=== PATIENT | female | born 1955 | race Caucasian/White ===

== ENCOUNTER 2016-05-22 21:20 | Emergency (ER) | payer OTHER ==
[~2016-05-22 21:20] MED LIST: AMARYL2 PO; AMARYL4 PO; ASAB PO; COREG6 PO; ENDOCET1 TA3 PO; FLAGIV500 IV; GLUCPH PO; GLUMETZA1000 MG PO; GLUMETZA500 MG PO; HYDROCHLOROT25 MG PO; IRON325 MG PO; LIPITOR40 PO; MAX25 PO; MIRAPEX250 PO; NORV25 PO; PLAVIX PO; PR25 PO; PRIN10 PO; PRIN5 PO; PROBIOTIC OR; PROTONIX PO; ZOCOR40 PO; ZOCOR80 MG PO; ZOL100 PO; ZOL50 PO
[2016-05-22 22:21] LABS: BASOPHILS 0.2 %; BASOPHILS ABSOLUTE 0.02 10/3/uL (0.0-0.16); EOSINOPHILS 1.3 %; EOSINOPHILS ABSOLUTE 0.12 10/3/uL (0.0-0.53); HEMATOCRIT 38.3 % (36.0-48.0); HEMOGLOBIN 12.7 g/dL (12.0-16.0); IMMATURE GRANULOCYTES 0.3 %; IMMATURE GRANULOCYTES ABSOLUTE 0.03 10/3/uL (0.0-0.11); LYMPHOCYTES 24.5 %; LYMPHOCYTES ABSOLUTE 2.18 10/3/uL (0.67-4.30); MANUAL DIFF NO %; MEAN CORPUS HGB CONC 33.2 g/dL (32.0-36.0); MEAN CORPUSCULAR HEMOGLOB 28.5 pg (26.0-34.0); MEAN CORPUSCULAR VOLUME 85.9 fL (80-100); MEAN PLATELET VOLUME 9.5 fL (9.2-13.0); MONOCYTES 3.5 %; MONOCYTES ABSOLUTE 0.31 10/3/uL (0.21-1.20); NEUTROPHILS 70.2 %; NEUTROPHILS ABSOLUTE 6.25 10/3/uL (2.02-8.40); PLATELET COUNT 227 10/3/uL (150-400); RBC DISTRIBUTION WIDTH 13.8 % (12.0-16.0); RED CELL COUNT 4.46 10/6/uL (4.0-5.6); WHITE BLOOD CELLS 8.9 10/3/uL (4.5-10.5)
[2016-05-22 22:22] LABS: ASCORBIC ACID (UR NOT ORDER) NEG (NEG); BILIRUBIN, URINE NEGATIVE (NEG); ER URINALYSIS TAT 0 Hrs 10 Mins; KETONE, URINE NEGATIVE (NEG); LEUKOCYTE ESTERASE(NOT OR NEG (NEG); NITRITE (URINE) NEG (NEG); WBC (NOT ORDERED) (RFLEX) < 1 (0-5)
[2016-05-22 22:39] LABS: ALBUMIN 3.5 G/DL (3.5-5.0); ALKALINE PHOSPHATASE 117 U/L (45-117); BUN (BLOOD UREA NITROGEN) 7 MG/DL (6-23); CALCIUM, SERUM 8.7 MG/DL (8.5-10.4); CHLORIDE, SERUM 106 MMOL/L (96-112); CO2 (CARBON DIOXIDE) 29 MMOL/L (24-34); CREATININE 0.85 MG/DL (0.55-1.02); GFR AFRICAN AMERICAN 85 ML/MIN (>=60); GFR NON AFRICAN AMERICAN 73 ML/MIN (>=60); GLOBULIN 3.4 G/DL (2.5-4.1); GLUCOSE, SERUM 128 MG/DL (60-99); POTASSIUM, SERUM 3.4 MMOL/L (3.5-5.3); SGOT(AST) 12 U/L (5-40); SGPT(ALT) 20 U/L (5-65); TOTAL PROTEIN 6.9 G/DL (6.0-8.5)
[2016-05-22 22:40] LABS: SODIUM, SERUM 143 MMOL/L (135-148); TOTAL BILIRUBIN 1.2 MG/DL (0-1.2)
[2016-07-27] MEDS ORDERED: GLUCOPHAGE1000 MG PO (15:28)
[2016-07-27] MEDS ORDERED: ZANTAC300 MG PO (15:30)
[2016-07-27] MEDS ORDERED: AMARYL2 PO (15:30)
[2016-07-27] MEDS ORDERED: BENTYL10 PO (15:31)
[2016-07-27] MEDS ORDERED: NEUR100 PO (15:32)
[2016-07-27] MEDS ORDERED: DIL2TAB PO (15:33)
[2016-09-12] MEDS ORDERED: NORCO1 TAB PO (22:23)
[2016-09-12] MEDS ORDERED: P10 PO (22:24)
[2016-09-12] MEDS ORDERED: FLEX PO (22:25)
[2016-09-12] MEDS ORDERED: ULTRAM50 PO (22:25)
[2016-09-12] MEDS ORDERED: NEUR100 PO (22:26)
[2016-09-12] MEDS ORDERED: DEX4 PO (22:26)
[2016-09-12] MEDS ORDERED: CHEMOTHERAPY IV (22:27)
[2016-09-12] MEDS ORDERED: CLARIT10 PO (22:27)
[2016-09-12] MEDS ORDERED: BENTYL10 PO (22:28)
[2016-09-12] MEDS ORDERED: PR25 PO (22:28)
[2016-09-12] MEDS ORDERED: ZANTAC300 MG PO (22:28)
[2016-09-12] MEDS ORDERED: METHOC750B PO (22:28)
[2016-09-12] MEDS ORDERED: MAXZIDE PO (22:30)
[2016-09-12] MEDS ORDERED: GLUCOPHAGE1000 MG PO (22:30)
[2016-09-12] MEDS ORDERED: AMARYL2 PO (22:30)
[2016-09-12] MEDS ORDERED: PROTONIX PO (22:30)
[2016-09-14] MEDS ORDERED: VANCOMYCIN PO/LIQ (11:11)
[2016-09-14] MEDS ORDERED: HABIT21 TOP (11:13)
[2016-09-14] MEDS ORDERED: HABIT14 TOP (11:14)
[2016-09-14] MEDS ORDERED: VANCOCIN HCL125 MG PO (11:15)
== END 2016-05-22 23:49 | disposition home or self-care (01) ==
LOC: ER 21:20
PROVIDERS: Emergency Medicine
DX: K29.50 Unspecified chronic gastritis without bleeding (principal); F17.200 Nicotine dependence, unspecified, uncomplicated; Z85.038 Personal history of other malignant neoplasm of large intestine; Z88.5 Allergy status to narcotic agent; Z79.82 Long term (current) use of aspirin; Z79.899 Other long term (current) drug therapy
CPT/HCPCS: 74022; 80053; 81001; 83690; 85025; 99284; A9270-GY

== ENCOUNTER 2016-06-05 17:04 | Inpatient (IN) | payer OTHER ==
--- NOTE | ~2016-06-05 | DS ---
Discharge Summary [facility] [address] [place]. [address] NAME: LASHONDA LESTER : 53 STATUS : DIS IN PAT#: [id number] AGE: 61 ADM/REG DATE : 06/05/16 MR#: [id number] REPORT SERV DATE: 06/10/16 DICTATED BY: KINGA EATNO DATE: 06/09/16 REPORT STATUS : Draft TRANSCRIBED BY: MODL DATE: 06/09/16 ADMISSION DATE: 06/05/2016 DISCHARGE DATE: 06/08/2016 CONDITION ON DISCHARGE: Stable. DISPOSITION: Discharged to home. ADVISE ON DISCHARGE: To follow up with PCP, Dr. Freed, within the next one week and advised to stop smoking and lifestyle changes. DIAGNOSES ON DISCHARGE: 1. Abdominal pain, especially upper abdominal pain which is worse when the patient eats food - no definitive cause for this has been identified as of yet except that the patient has chronic granular changes in her gastric mucosa and biopsy of this is pending at this time. The patient has undergone the following tests regarding this:. a. A CT scan of the abdomen and pelvis that did not show any acute changes but ileocolic anastomosis as will be dictated in the following paragraphs. b. The patient also had a mesenteric Doppler ultrasound that did not show any SMA or LETICIA stenosis. c. MRA or magnetic resonance angiography of the abdominal blood vessels including SMA and LETICIA that showed both superior mesenteric and inferior mesenteric arteries to be patent and a questionable blood clot in the superior mesenteric artery which was not significant at this time. It is probably related to atherosclerosis secondary to the patient's smoking and the patient has been advised to stop it. d. The patient also underwent a gastric emptying study that showed no evidence of gastroparesis. e. The patient also underwent a repeat upper endoscopy which showed the only positive finding being granular mucosa of the stomach which has been biopsied. The patient may have chronic gastritis and granular changes in the stomach mucosa; however, biopsy results are awaited at this time. The patient does not have any significant esophagitis or duodenitis or any duodenal ulcer at this time and definitely no bleeding. Other diagnoses that are chronic in this patient include the followin. Diabetes mellitus which is chronic and stable. 2. Hypertension and dyslipidemia which are chronic and stable. 3. Chronic kidney disease, stage 2, which is stable. 4. History of colon cancer, status post partial colon resection and ileocolic anastomosis which is stable. 5. Restless legs syndrome - the patient has been restarted on Mirapex. 6. Abnormal mammogram and abnormal breath sounds with a mass in the right breast, I understand for which the patient is being scheduled for a biopsy as an outpatient by Dr. Freed apparently. The patient is aware and Dr. Freed is aware of this too. 7. The patient may also have irritable bowel syndrome as she has diarrhea alternating with constipation. However, as the patient reported diarrhea predominantly at this time, her stool was sent off for C diff and stool has come back negative for C diff at this Discharge [address] [place]. [address] NAME: LASHONDA LESTER : 53 STATUS : DIS IN PAT#: [id number] AGE: 61 ADM/REG DATE : 06/05/16 MR#: [id number] REPORT SERV DATE: 06/10/16 DICTATED BY: KINGA EATON DATE: 06/09/16 REPORT STATUS : Draft TRANSCRIBED BY: ANDREA DATE: 06/09/16 time. BRIEF HOSPITAL COURSE: The patient is a 61-year-old female patient who smokes at least one to two packs a day, came in because of abdominal pain for the last several months off and on and also weight loss and diarrhea off and on. The patient's family states that she has been to several emergency rooms and they could not find anything wrong on CT scan and she has been turned back. At this time, they really want to find out what is going on. The patient actually was sent as a direct admit from Dr. Freed's office for this abdominal pain, subjective fever, and diarrhea. The patient also reported off and on nausea with some vomiting, but her main complaint was mainly decreased appetite, abdominal pain, mainly in the epigastric area that happens when she eats food and because of loss of appetite and this nausea and pain that happens when she eats food, loss of weight also in the last few weeks to months. The patient states that she will not discuss quitting smoking at this time, and hence throughout hospitalization, other than one or two times and upon discharge that I had discussed the risks of continuing to smoke with her. I could not bring up anything else. Essentially, she was admitted for pain control and started on IV fluids and supportive care. The patient's diarrhea is resolved and her C diff came back negative. Regarding her abdominal pain. Several workups that were done came back negative and all of this has been described as above. The patient requested a consult from GI specialist Dr. Taran Perry, and as he was not on-call, we went ahead and consulted Dr. Pisano. Dr. Pisano performed a repeat EGD on this patient and EGD essentially shows only granular changes in the gastric mucosa. Other than that, no bleeding at this time and no other significant changes on EGD that could account for her abdominal pain. All other tests as above have come back negative also, and hence, she is being discharged home in stable condition with the following medications: 1. She will continue her PPI twice a day and sucralfate 1 g twice a day. 2. She will continue promethazine or Phenergan p.r.n. for nausea. The patient will continue her other medications as follows: 1. Zoloft 50 mg once a day, Coreg 6.25 mg p.o. b.i.d. for hypertension which has been restarted while here in the hospital. 2. Flexeril 10 mg p.o. t.i.d. as this does give her some relief from pain. 3. Protonix 40 mg p.o. b.i.d. as mentioned. 4. Sucralfate 1 g p.o. b.i.d. as mentioned. 5. Mirapex 0.5 mg p.o. b.i.d. for restless legs. 6. Percocet 5/325 one p.o. t.i.d. p.r.n. for pain. The patient only has been given a few pills of this. 7. She will continue Zocor 40 mg p.o. at bedtime. The most recent labs I have on this patient upon discharge include the following: Blood cultures have come back with no growth at two days. CBC on 06/07/2016 shows a WBC count of 5.6, hemoglobin 11.5, hematocrit 34.7, and platelet count of 192. INR is 1.1. Electrolyte profile shows sodium of 140, potassium of 3.4 which was corrected, BUN 7, and creatinine 0.7. Upon repeat exam on 06/07/2016, her potassium came back at 3.7. Hence, the patient is being discharged home in stable condition and advised to follow up with her PCP within next one week and I have spent about 40 minutes in coordinating discharge care of this patient including [id number] encounter and summarizing this discharge. Discharge Summary [place] [id number] [facility] [place] [id number] NAME: LASHONDA LESTER : 53 STATUS : DIS IN PAT#: [id number] AGE: 61 ADM/REG DATE : 06/05/16 MR#: [id number] REPORT SERV DATE: 06/10/16 DICTATED BY: KINGA EATON DATE: 06/09/16 REPORT STATUS : Draft TRANSCRIBED BY: ANDREA DATE: 06/09/16 AIDE/ANDREA Kinga Eaton M.D. / [id number] CC: Fernando Brizuela M.D.
--- NOTE | ~2016-06-05 | HP ---
History And Physical [place] [id number] [facility] [place]. [address] NAME: LASHONDA MAZA : 53 STATUS : ADM IN PAT#: [id number] AGE: 61 ADM/REG DATE : 06/05/16 MR#: [id number] REPORT SERV DATE: 06/06/16 DICTATED BY: KINGA EATON DATE: 06/05/16 REPORT STATUS : Draft TRANSCRIBED BY: MODCordell DATE: 06/05/16 DATE OF ADMISSION: 06/05/2016 HISTORY OF PRESENT ILLNESS: Ms. Maza is a 61-year-old female patient, who is coming here as a direct admit from Dr. Freed's office. When I spoke to Dr. Freed, he mentioned to me that the reason for admission was essentially fever, abdominal pain with nausea and vomiting off and on and also diarrhea off and on for the last six to eight weeks. The patient came in as a direct admit. I examined the patient at the bedside, and the patient seems to be very anxious and shaky all over. However, I calmed her down and was able to get some history from her and some history from her and her son who is also at bedside. Essentially, this 61-year-old patient has been having upper quadrant abdominal pain almost every day for the last six to eight weeks. Along with this, she also has bouts of diarrhea at least two to three times a day, three to four times a week, and also nausea and vomiting off and on, also for the last six to eight weeks. The patient reports a 20- pound weight loss in the last six or eight weeks. Also, there has been some subjective fevers off and on for the last same period of six to eight weeks also. According to patient's family, they have visited several emergency rooms, the most recent one being at [facility] about a week ago and multiple CT scans of the abdomen in these hospitals have essentially showed nothing. The patient's family states that there is definitely something going on and the patient is not a pain seeker, and every time she goes on to the emergency room, they do these scans and workup and send her home saying that there is nothing acute going on, but the patient does experience the above problems as mentioned. REVIEW OF SYSTEMS: Negative for headaches, blurry vision, chest pain, shortness of breath, cough, dysuria, hematuria, blood in stool, etc., but positive for nausea and vomiting off and on, diarrhea off and on, 20 pounds weight loss, and definitely abdominal pain, which is making her not eat much at all for the last two months or so. PAST MEDICAL HISTORY: Significant for diabetes mellitus; hypertension; dyslipidemia; chronic kidney disease, stage II; a history of colon cancer, status post partial colon resection; restless legs syndrome; and chronic abdominal pain like this for the last two months or so. Also significant in past medical history, I was told that the patient recently had an abnormal mammogram and an abnormal breast ultrasound and the patient has been really anxious about this, but referral to Surgery has already been made for possible biopsy of this abnormal lesion in the breast. According to patient, this can wait, but she wants her abdominal pain sorted out first. HOME MEDICATIONS: Include the following: Amlodipine 2.5 mg once a day, Coreg 6.25 mg p.o. twice a day, cyclobenzaprine 10 mg one tablet p.o. t.i.d., Pepcid 20 mg one p.o. b.i.d., glimepiride 2 mg 1-1/2 tablets every day, lisinopril 10 mg once a day, Meloxicam 7.5 mg once a day with food, metformin 1000 mg tablet one p.o. b.i.d., Percocet 5/325 mg tablet p.r.n. for pain, Pantoprazole 40 mg tablet one p.o. daily, Mirapex 0.5 mg p.o. b.i.d., Phenergan p.r.n. for nausea and vomiting, sertraline 50 mg once a day, simvastatin 40 mg tablet once a day, sucralfate 1 g tablet one p.o. four times a day, Tizanidine 6 mg oral capsule every six to eight hours as needed, and Maxzide 75/50 once a day. History And Physical [address] [place]. [address] NAME: LASHONDA MAZA : 53 STATUS : ADM IN [facility]#: [id number] AGE: 61 ADM/REG DATE : 06/05/16 MR#: [id number] REPORT SERV DATE: 06/06/16 DICTATED BY: KINGA EATON DATE: 06/05/16 REPORT STATUS : Draft TRANSCRIBED BY: ANDREA DATE: 06/05/16 ALLERGIES: THE PATIENT IS ALLERGIC TO CODEINE. FAMILY HISTORY: Noncontributory to the current problem, but the patient does have a family history of COPD, family history of dementia, and a family history of alcohol abuse. SURGICAL HISTORY: The patient has had a history of appendectomy, history of , a history of partial colon resection for the colon cancer, a history of oophorectomy, and a history of angioplasty of the coronary arteries in the past. The patient has also had a total abdominal hysterectomy and cholecystectomy in the past. SOCIAL HISTORY: The patient smokes about two packs a day but denies any alcohol use, denies any illegal drug use. The patient is . Currently and son is with the patient. PHYSICAL EXAMINATION: GENERAL: On examination, the patient is alert and appears extremely anxious and shaky all over and she just states that she can calm down but she feels anxious. VITAL SIGNS: At this time are stable, and even in the doctor's office, her blood pressure was 117/70 and pulse was about 100-105 per minute. O2 saturations are normal. The patient does not appear febrile to touch. HEENT: There is no abnormality, there is no facial droop or facial weakness. NECK: There is no JVD or thyromegaly or lymphadenopathy. CARDIOVASCULAR SYSTEM: S1, S2 appreciated. Mild tachycardia noted but no murmurs, rubs, or gallops noted. RESPIRATORY SYSTEM: Clear lungs noted. No rales or rhonchi appreciated. ABDOMEN: Soft, mildly distended. There is some tenderness in the upper quadrants and also in the central part of the abdomen, but there is no guarding or rigidity noted. Bowel sounds are appreciated even though hypoactive. EXTREMITIES: There is no pedal edema. Pedal pulses are felt but diminished in both lower extremities. NEUROLOGICAL: No deficits at this time. PSYCHIATRIC: The patient appears extremely anxious. There is also history of depression for which patient takes sertraline. MUSCULOSKELETAL: No acute swelling or warmth or redness in any of the major joints. LABORATORY DATA: I do not have labs at this time but according to patient's PCP, Dr. Freed, a CBC done in the office showed a normal WBC but a left shift with neutrophilia. ASSESSMENT: Hence, my assessment at this time, is: 1. Probable sepsis as the patient does report subjective fevers, tachycardia, abdominal pain, nausea, vomiting, and diarrhea. Hence, for this, we will obtain a CBC, check blood culture and sensitivities, urine culture and sensitivities, UA, and check a chest x-ray also. We will also obtain lactic acid level and procalcitonin levels at this time too. We will not start antibiotics unless we have a source for this. 2. Abdominal pain with off and on nausea and vomiting. Hence, we will check a CMP, lipase, amylase, and we will also check a CT scan of the abdomen without contrast as History And Physical [address] [address] NAME: LASHONDA MAZA : 53 STATUS : ADM IN [facility]#: [id number] AGE: 61 ADM/REG DATE : 06/05/16 MR#: [id number] REPORT SERV DATE: 06/06/16 DICTATED BY: KINGA EATON DATE: 06/05/16 REPORT STATUS : Draft TRANSCRIBED BY: ANDREA DATE: 06/05/16 the patient has a history of chronic kidney disease. We will check a CT scan of the pelvis also. 3. Even though, the patient's family states that CT scans that have been done in the past have not showed anything acute, I would like to repeat another one at this time as one CT scan has not been done in the last few days and the patient is being admitted with acute abdominal pain this time. 4. For the diarrhea that the patient has had off and on along with the weight loss - we will check stool for C. diff. We will also start the patient on IV fluids for correction of mild dehydration with normal saline at 100 mL an hour and also add some multivitamins to this. 5. Regarding her home medications, I will be going ahead and restarting her only on the following home medications and holding off on the rest till I have some results of her labs and imaging studies. At the moment, I will start her on Coreg 6.25 mg p.o. b.i.d., Flexeril 10 mg p.o. t.i.d., Percocet 5/325 one p.o. t.i.d., Protonix 40 mg once a day, Mirapex 0.5 mg one p.o. b.i.d., sertraline 50 mg one p.o. q.a.m., simvastatin 40 mg once a day, and sucralfate 1 g p.o. b.i.d. We will try to give her Ativan 0.5 mg p.o. b.i.d. and definitely not allow her to smoke and coax her into not smoking at this time. If all the above studies are negative, we will definitely consider a mesenteric arterial Doppler to rule out SMA stenosis also in this patient. We will follow the patient and labs and radiological studies. RRA/MODL Kinga Eaton M.D. / [id number] CC: Fernando Brizuela M.D.
--- NOTE | ~2016-06-05 | CN ---
Consultation Report [facility] [address] [place]. [address] NAME: LASHONDA MAZA : 53 STATUS : ADM IN PAT#: [id number] AGE: 61 ADM/REG DATE : 06/05/16 MR#: [id number] REPORT SERV DATE: 06/06/16 DICTATED BY: MONET DIALLO DATE: 06/06/16 REPORT STATUS : Draft TRANSCRIBED BY: MODCordell DATE: 06/06/16 GI CONSULTATION. DATE OF CONSULTATION: 06/06/2016 REASON FOR CONSULTATION: Evaluation and management of epigastric abdominal pain and weight loss. HISTORY OF PRESENT ILLNESS: Ms. Maza is a 61-year-old female patient who has been seen by Dr. Perry in the past who was directly admitted from Dr. Freed's office on 06/05/2016 secondary to abdominal pain, nausea, vomiting, early satiety, diarrhea as well as intermittent fevers. She states that she has had trouble with her GI tract since the beginning of the year; however, over the last 7 weeks, she has had a 20 pound weight loss. She states that she has an appetite but that when she eats she fills up fast. She has epigastric abdominal pain, intermittent nausea with vomiting. Several days ago, she had diarrhea. She has had fevers on and off subjectively; however, when she was seen in her physician's office, there was note of elevated temperature. She also had a temperature max here of 100.3. The hospitalist has ordered a CT scan of the abdomen and pelvis. The patient states that she was at [facility] in early March for what she thought was a cardiac event; however, that was ruled out. She was seen by Dr. Andres Flores, GI there. She states she had an upper endoscopy but that she would like a second opinion as she is typically Dr. Perry's patient. He does not frequent [facility], and that is why she was seen by Dr. Flores there. She has seen Dr. Perry since being seen by Dr. Flores, and she was supposed to have a mesenteric ultrasound as an outpatient. However, secondary to the persistence of her symptoms, she came in for further evaluation. Her last EGD and colonoscopy with Dr. Taran Perry was in July 2014. Indication was iron deficiency anemia. EGD showed gastritis and normal esophagus. Colonoscopy showed poor prep, patent ileocolonic anastomosis, colon polyps, and nonbleeding internal hemorrhoids. I have discussed with the patient we will follow up on her CT scan as well as we will perform an EGD tomorrow. Risks, benefits, alternatives, and complications were detailed for her to include but not limited to risk of bleeding, perforation, infection, reaction to medications as well as cardiac and pulmonary side effects. Also, I am going to order a mesenteric ultrasound. PAST MEDICAL HISTORY: Positive for type 2 diabetes, hypertension, dyslipidemia, chronic kidney disease, colon cancer and status post resection, restless legs syndrome, abdominal pain, reflux, and recent abnormal breast mammogram and to see Surgery for potential biopsy. SOCIAL HISTORY: She is . She lives independently with her . She does smoke tobacco in the form of cigarettes. Denies any alcohol or illicit drugs. PAST SURGICAL HISTORY: Appendectomy, , partial colon resection, history of oophorectomy, angioplasty, total abdominal hysterectomy, and cholecystectomy. ALLERGIES: CODEINE. Consultation Report [address] [address] NAME: LASHONDA MAZA : 53 STATUS : ADM IN [facility]#: [id number] AGE: 61 ADM/REG DATE : 06/05/16 MR#: [id number] REPORT SERV DATE: 06/06/16 DICTATED BY: MONET DIALLO DATE: 06/06/16 REPORT STATUS : Draft TRANSCRIBED BY: ANDREA DATE: 06/06/16 MEDICATIONS: Phenergan and Zoloft. REVIEW OF SYSTEMS: A 10-point review of systems has been obtained with pertinent positives being addressed in the history of present illness. PHYSICAL EXAMINATION: VITAL SIGNS: Temperature is 98.9, pulse 106, respirations 16, and blood pressure 117/58. NEUROLOGIC: An alert, female resting in bed. No focal deficits. GENERAL: Cooperative. Mild distress secondary to abdominal discomfort. Awake, alert, oriented x3. HEENT: Anicteric. Pupils equal, round, reactive to light and accommodation. Normocephalic and atraumatic. NECK: No JVD. No palpable nodes. LUNGS: Diminished in the bases. Coarse in the upper lobes. Normal respiratory effort exhibited. CARDIOVASCULAR SYSTEM: Regular rate and rhythm. ABDOMEN: Soft and tender to palpation in the epigastric region with very mild rebound. No guarding. Active bowel sounds. EXTREMITIES: No edema. Normal distal pulses. SKIN: Warm, dry, and intact. PERTINENT LABORATORY DATA: Sodium 136, potassium 2.9, BUN is 5 creatinine 0.9. White count 7.4, hemoglobin 13.1, and hematocrit 39.7. Total bilirubin 0.8. Alkaline phosphatase 123, ALT 19, AST 16, lipase 102, and lactate 2.4. ASSESSMENT: 1. Abdominal pain. Ongoing since the beginning of the year. Epigastric in nature with increase in pain postprandially. 2. Nausea, vomiting, and diarrhea. 3. Fever. 4. Weight loss. PLAN: 1. Follow up CT. 2. Check a mesenteric ultrasound. 3. EGD in the morning with Dr. Pisano. I did discuss risks, benefits, alternatives, and complications with her to include, but not limited to risk of bleeding, perforation, infection, reaction to medications with cardiac or pulmonary side effects. She is agreeable to proceed. DG/MODL Consultation Report [address] [address] NAME: LASHONDA MAZA : 53 STATUS : ADM IN [facility]#: [id number] AGE: 61 ADM/REG DATE : 06/05/16 MR#: [id number] REPORT SERV DATE: 06/06/16 DICTATED BY: MONET DIALLO DATE: 06/06/16 REPORT STATUS : Draft TRANSCRIBED BY: ANDREA DATE: 06/06/16 KATIUSKA Osborn / [id number] CC: Fernando Brizuela M.D.
--- NOTE | ~2016-06-05 | EGD ---
EGD REPORT [facility] [address] [address] NAME: RACHEL LESTER : 53 STATUS : ADM IN PAT#: [id number] AGE: 61 ADM/REG DATE : 06/05/16 MR#: [id number] REPORT SERV DATE: 06/07/16 DICTATED BY: PRIMO BREAUX DATE: 06/07/16 REPORT STATUS : Draft TRANSCRIBED BY: [facility] DATE: 06/07/16 Endoscopy Center Patient Name: Rachel Lester Date of : 1955 Attending MD: PRIMO BREAUX MD Procedure Date No Time: 06/07/2016 Procedure: Upper GI endoscopy Indications: Epigastric abdominal pain, Nausea with vomiting, Weight loss Referring MD: BRANDY ASIF Medicines: Monitored Anesthesia Care Complications: No immediate complications. Estimated blood loss: Minimal. Procedure: Pre-Anesthesia Assessment: - ASA Grade Assessment: III - A patient with severe systemic disease. After obtaining informed consent, the endoscope was passed under direct vision. Throughout the procedure, the patient's blood pressure, pulse, and oxygen saturations were monitored continuously. The GIF [id number] was introduced through the mouth, and advanced to the second part of duodenum. The upper GI endoscopy was accomplished without difficulty. The patient tolerated the procedure well. Findings: The examined esophagus was normal. Diffuse granular mucosa was found in the gastric fundus and in the gastric body. Biopsies were taken with a cold forceps for histology. Estimated blood loss was minimal. The examined duodenum was normal. Biopsies were taken with a cold forceps for evaluation of celiac disease. Estimated blood loss was minimal. The cardia and gastric fundus were normal on retroflexion. The exam was otherwise without abnormality. Impression: - Granular gastric mucosa. Biopsied. - Normal examined duodenum. Biopsied. - The examination was otherwise normal. Recommendation: - Return patient to [facility] for ongoing care. - Await pathology results. Procedure Code(s): --- Professional --- 05983, Esophagogastroduodenoscopy, flexible, transoral; EGD REPORT [address] [address] NAME: RACHEL LESTER : [birth year] STATUS : ADM IN [facility]#: [id number] AGE: 61 ADM/REG DATE : 06/05/16 MR#: [id number] REPORT SERV DATE: 06/07/16 DICTATED BY: PRIMO BREAUX DATE: 06/07/16 REPORT STATUS : Draft TRANSCRIBED BY: [facility] DATE: 06/07/16 with biopsy, single or multiple Diagnosis Code(s): --- Professional --- K31.9, Disease of stomach and duodenum, unspecified R10.13, Epigastric pain R11.2, Nausea with vomiting, unspecified R63.4, Abnormal weight loss CPT copyright 2013 [employer]. All rights reserved. The codes documented in this report are preliminary and upon corporation officer review may be revised to meet current compliance requirements. Primo Breaux MD PRIMO BREAUX MD 06/07/2016 8:28 AM This report has been signed electronically. Number of Addenda: 0 Note Initiated On: 06/07/2016 7:59 AM Scope Withdrawal Time 0 hours 0 minutes [address] [place] [id number]
[2016-06-05 18:53] LABS: BASOPHILS 0.3 %; BASOPHILS ABSOLUTE 0.02 10/3/uL (0.0-0.16); EOSINOPHILS 0.5 %; EOSINOPHILS ABSOLUTE 0.04 10/3/uL (0.0-0.53); HEMATOCRIT 39.7 % (36.0-48.0); HEMOGLOBIN 13.1 g/dL (12.0-16.0); IMMATURE GRANULOCYTES 0.4 %; IMMATURE GRANULOCYTES ABSOLUTE 0.03 10/3/uL (0.0-0.11); LYMPHOCYTES 6.5 %; LYMPHOCYTES ABSOLUTE 0.48 10/3/uL (0.67-4.30); MANUAL DIFF NO %; MEAN CORPUSCULAR HEMOGLOB 27.6 pg (26.0-34.0); MEAN CORPUSCULAR VOLUME 83.8 fL (80-100); MEAN PLATELET VOLUME 10.1 fL (9.2-13.0); MONOCYTES 5.4 %; NEUTROPHILS 86.9 %; NEUTROPHILS ABSOLUTE 6.44 10/3/uL (2.02-8.40); PLATELET COUNT 237 10/3/uL (150-400); RBC DISTRIBUTION WIDTH 13.3 % (12.0-16.0); RED CELL COUNT 4.74 10/6/uL (4.0-5.6); WHITE BLOOD CELLS 7.4 10/3/uL (4.5-10.5)
[2016-06-05 19:10] LABS: A/G RATIO 0.9 (0.7-1.9); ALBUMIN 3.3 G/DL (3.5-5.0); ALKALINE PHOSPHATASE 123 U/L (45-117); BUN (BLOOD UREA NITROGEN) 5 MG/DL (6-23); CALCIUM, SERUM 8.5 MG/DL (8.5-10.4); CHLORIDE, SERUM 100 MMOL/L (96-112); CO2 (CARBON DIOXIDE) 25 MMOL/L (24-34); GFR AFRICAN AMERICAN 79 ML/MIN (>=60); GFR NON AFRICAN AMERICAN 69 ML/MIN (>=60); GLOBULIN 3.8 G/DL (2.5-4.1); GLUCOSE, SERUM 150 MG/DL (60-99); SGOT(AST) 16 U/L (5-40); SGPT(ALT) 19 U/L (5-65); TOTAL BILIRUBIN 0.8 MG/DL (0-1.2); TOTAL PROTEIN 7.1 G/DL (6.0-8.5)
[2016-06-05 19:14] LABS: SODIUM, SERUM 136 MMOL/L (135-148)
[2016-06-05 19:15] LABS: POTASSIUM, SERUM 2.5 MMOL/L (3.5-5.3)
[2016-06-05 19:57] LABS: PROCALCITONIN 0.05 ng/mL (<0.5)
[2016-06-05] MEDS ORDERED: ZOL50 PO (21:18)
[2016-06-05] MEDS ORDERED: PR12.5 PO (21:18)
[2016-06-05 21:57] LABS: A/G RATIO 1.3 (0.7-1.9); ALBUMIN 3.6 G/DL (3.5-5.0); ALKALINE PHOSPHATASE 119 U/L (45-117); BUN (BLOOD UREA NITROGEN) 6 MG/DL (6-23); CHLORIDE, SERUM 103 MMOL/L (96-112); CO2 (CARBON DIOXIDE) 26 MMOL/L (24-34); CREATININE 0.84 MG/DL (0.55-1.02); GFR AFRICAN AMERICAN 86 ML/MIN (>=60); GFR NON AFRICAN AMERICAN 74 ML/MIN (>=60); GLOBULIN 2.8 G/DL (2.5-4.1); GLUCOSE, SERUM 121 MG/DL (60-99); POTASSIUM, SERUM 3.2 MMOL/L (3.5-5.3); SGOT(AST) 17 U/L (5-40); SGPT(ALT) 17 U/L (5-65); SODIUM, SERUM 140 MMOL/L (135-148); TOTAL BILIRUBIN 0.8 MG/DL (0-1.2); TOTAL PROTEIN 6.4 G/DL (6.0-8.5)
[2016-06-05 22:25] LABS: ASCORBIC ACID (UR NOT ORDER) NEG (NEG); BILIRUBIN, URINE NEGATIVE (NEG); KETONE, URINE NEGATIVE (NEG); LEUKOCYTE ESTERASE(NOT OR NEG (NEG); WBC (NOT ORDERED) (RFLEX) 1 (0-5)
[2016-06-07 04:27] LABS: BASOPHILS 0.2 %; BASOPHILS ABSOLUTE 0.01 10/3/uL (0.0-0.16); EOSINOPHILS 0.5 %; EOSINOPHILS ABSOLUTE 0.03 10/3/uL (0.0-0.53); HEMOGLOBIN 11.5 g/dL (12.0-16.0); IMMATURE GRANULOCYTES 0.4 %; IMMATURE GRANULOCYTES ABSOLUTE 0.02 10/3/uL (0.0-0.11); LYMPHOCYTES 30.9 %; LYMPHOCYTES ABSOLUTE 1.74 10/3/uL (0.67-4.30); MEAN CORPUS HGB CONC 33.1 g/dL (32.0-36.0); MEAN CORPUSCULAR HEMOGLOB 28.3 pg (26.0-34.0); MEAN CORPUSCULAR VOLUME 85.5 fL (80-100); MEAN PLATELET VOLUME 9.7 fL (9.2-13.0); MONOCYTES 7.6 %; MONOCYTES ABSOLUTE 0.43 10/3/uL (0.21-1.20); NEUTROPHILS 60.4 %; PLATELET COUNT 192 10/3/uL (150-400); RBC DISTRIBUTION WIDTH 14.1 % (12.0-16.0); RED CELL COUNT 4.06 10/6/uL (4.0-5.6); WHITE BLOOD CELLS 5.6 10/3/uL (4.5-10.5)
[2016-06-07 04:28] LABS: HEMATOCRIT 34.7 % (36.0-48.0); MANUAL DIFF NO %
[2016-06-07 04:29] LABS: INTERNATIONAL NORMAL RATI 1.1 UNITS (-); PROTIME (NOT ORD) 14.5 SEC (12.0-14.5)
[2016-06-07 04:40] LABS: BUN (BLOOD UREA NITROGEN) 7 MG/DL (6-23); CALCIUM, SERUM 8.2 MG/DL (8.5-10.4); CHLORIDE, SERUM 107 MMOL/L (96-112); CO2 (CARBON DIOXIDE) 21 MMOL/L (24-34); CREATININE 0.71 MG/DL (0.55-1.02); GFR AFRICAN AMERICAN 106 ML/MIN (>=60); GFR NON AFRICAN AMERICAN 91 ML/MIN (>=60); GLUCOSE, SERUM 135 MG/DL (60-99); POTASSIUM, SERUM 3.4 MMOL/L (3.5-5.3); SODIUM, SERUM 140 MMOL/L (135-148)
[2016-06-08] MEDS ORDERED: COREG6 PO (11:58)
[2016-06-08] MEDS ORDERED: FLEX PO (11:59)
[2016-06-08] MEDS ORDERED: PROTONIX PO (12:00)
[2016-06-08] MEDS ORDERED: MIRAPEX5 PO (12:00)
[2016-06-08] MEDS ORDERED: SUCR PO (12:01)
[2016-06-08] MEDS ORDERED: ZOCOR40 PO (12:01)
[2016-06-08] MEDS ORDERED: PCET PO (12:03)
[2016-07-27] MEDS ORDERED: GLUCOPHAGE1000 MG PO (15:28)
[2016-07-27] MEDS ORDERED: AMARYL2 PO (15:30)
[2016-07-27] MEDS ORDERED: ZANTAC300 MG PO (15:30)
[2016-07-27] MEDS ORDERED: BENTYL10 PO (15:31)
[2016-07-27] MEDS ORDERED: NEUR100 PO (15:32)
[2016-07-27] MEDS ORDERED: DIL2TAB PO (15:33)
[2016-09-12] MEDS ORDERED: NORCO1 TAB PO (22:23)
[2016-09-12] MEDS ORDERED: P10 PO (22:24)
[2016-09-12] MEDS ORDERED: ULTRAM50 PO (22:25)
[2016-09-12] MEDS ORDERED: FLEX PO (22:25)
[2016-09-12] MEDS ORDERED: DEX4 PO (22:26)
[2016-09-12] MEDS ORDERED: NEUR100 PO (22:26)
[2016-09-12] MEDS ORDERED: CHEMOTHERAPY IV (22:27)
[2016-09-12] MEDS ORDERED: CLARIT10 PO (22:27)
[2016-09-12] MEDS ORDERED: METHOC750B PO (22:28)
[2016-09-12] MEDS ORDERED: ZANTAC300 MG PO (22:28)
[2016-09-12] MEDS ORDERED: PR25 PO (22:28)
[2016-09-12] MEDS ORDERED: BENTYL10 PO (22:28)
[2016-09-12] MEDS ORDERED: PROTONIX PO (22:30)
[2016-09-12] MEDS ORDERED: GLUCOPHAGE1000 MG PO (22:30)
[2016-09-12] MEDS ORDERED: AMARYL2 PO (22:30)
[2016-09-12] MEDS ORDERED: MAXZIDE PO (22:30)
[2016-09-14] MEDS ORDERED: VANCOMYCIN PO/LIQ (11:11)
[2016-09-14] MEDS ORDERED: HABIT21 TOP (11:13)
[2016-09-14] MEDS ORDERED: HABIT14 TOP (11:14)
[2016-09-14] MEDS ORDERED: VANCOCIN HCL125 MG PO (11:15)
== END 2016-06-08 13:03 | disposition home or self-care (01) | DRG 392 ==
LOC: 7NO 17:04
PROVIDERS: Family Medicine; Internal Medicine Gastroenterology; Nurse Practitioner Family
PROC: 0DB98ZX Excision of Duodenum, Via Natural or Artificial Opening Endoscopic, Diagnostic (ICD-10-PCS; 2016-06-07)
PROC: 0DB68ZX Excision of Stomach, Via Natural or Artificial Opening Endoscopic, Diagnostic (ICD-10-PCS; principal; 2016-06-07 08:00)
DX: K29.50 Unspecified chronic gastritis without bleeding (principal); I12.9 Hypertensive chronic kidney disease with stage 1 through stage 4 chronic kidney disease, or unspecified chronic kidney disease; K31.9 Disease of stomach and duodenum, unspecified; E78.5 Hyperlipidemia, unspecified; E11.9 Type 2 diabetes mellitus without complications; N18.2 Chronic kidney disease, stage 2 (mild); F41.9 Anxiety disorder, unspecified; F32.9 Major depressive disorder, single episode, unspecified; F17.210 Nicotine dependence, cigarettes, uncomplicated; K58.0 Irritable bowel syndrome with diarrhea; R63.4 Abnormal weight loss; G25.81 Restless legs syndrome; Z68.30 Body mass index [BMI] 30.0-30.9, adult; Z90.49 Acquired absence of other specified parts of digestive tract; Z85.038 Personal history of other malignant neoplasm of large intestine; Z90.710 Acquired absence of both cervix and uterus; Z95.5 Presence of coronary angioplasty implant and graft; Z79.84 Long term (current) use of oral hypoglycemic drugs
CPT/HCPCS: 36415; 71010; 74176; 78264; 80048; 80053; 81001; 82150; 82962; 83605; 83690; 84132; 84145; 85025; 85610; 87040; 87493; 87493-59; 88305; 93005; 93975; A9270-GY; A9541; A9577; C8902; J1170; J2405; J2550; J2765

== ENCOUNTER 2016-08-01 07:19 | Day surgery (SDC) | payer OTHER ==
[2016-07-25 14:18] LABS: HEMOGLOBIN 12.7 g/dL (12.0-16.0)
[2016-07-25 14:19] LABS: HEMATOCRIT 38.9 % (36.0-48.0)
[2016-07-25 14:35] LABS: A/G RATIO 1.2 (0.7-1.9); ALBUMIN 3.6 G/DL (3.5-5.0); ALKALINE PHOSPHATASE 128 U/L (45-117); BUN (BLOOD UREA NITROGEN) 9 MG/DL (6-23); CHLORIDE, SERUM 107 MMOL/L (96-112); CREATININE 0.71 MG/DL (0.55-1.02); GFR AFRICAN AMERICAN 106 ML/MIN (>=60); GFR NON AFRICAN AMERICAN 91 ML/MIN (>=60); GLUCOSE, SERUM 111 MG/DL (60-99); SGOT(AST) 19 U/L (5-40); SGPT(ALT) 21 U/L (5-65); SODIUM, SERUM 141 MMOL/L (135-148); TOTAL BILIRUBIN 0.9 MG/DL (0-1.2); TOTAL PROTEIN 6.6 G/DL (6.0-8.5)
[2016-07-25 14:36] LABS: CALCIUM, SERUM 9.3 MG/DL (8.5-10.4); CO2 (CARBON DIOXIDE) 30 MMOL/L (24-34); POTASSIUM, SERUM 4.6 MMOL/L (3.5-5.3)
--- NOTE | ~2016-08-01 | OP ---
Record Of Operation [facility] [address] [place]. [address] NAME: LASHONDA LESTER : 53 STATUS : [facility]#: [id number] AGE: 61 ADM/REG DATE : 08/01/16 MR#: [id number] REPORT SERV DATE: 08/02/16 DICTATED BY: ANDRE HAHN JR. DATE: 08/01/16 REPORT STATUS : Draft TRANSCRIBED BY: [facility] DATE: 08/01/16 DATE OF PROCEDURE: REASON FOR SURGERY: This 61-year-old patient presents with a biopsy-proven malignancy of the right breast. She has been counseled fairly extensively along with the family, but there is poor understanding of the overall disease process. 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 The lesion has been seen for a number years on both CT scan and mammogram and is minimally changed in size over the years, which is an important indicator of a favorable prognostic tumor. It is doubtful that adjuvant therapy will impact survival more than one or two percentage points and with her severe comorbid conditions of cardiopulmonary disease, treatment may be with hormone blocking therapy alone. At 61, normally radiation therapy would be added, but this will be discussed after final pathology. PREOPERATIVE DIAGNOSIS: Carcinoma, right breast. POSTOPERATIVE DIAGNOSIS: Carcinoma, right breast. SURGERY PERFORMED: Shedd node localization followed by right breast ultrasound localization; right breast segmentectomy and sentinel node biopsy. DESCRIPTION OF PROCEDURE: The patient initially was injected in the nuclear medicine facility. She was taken to the operating room and under general anesthesia, ultrasound was used to isolate the lesion whether it is indeed palpable of the 7:30 position in the surgical position. The patient was prepped and draped in supine position in usual sterile fashion. A curvilinear incision was made over the palpable mass. Flaps were elevated in each direction and 4 cm sphere of tissue was taken keeping the mobile mass center most. There was close margins, but clear margins on both the medial and lateral borders, and therefore an additional disc was taken at both the 3 and 9 o'clock positions with the disc measuring 3 x 3 x 1 cm each. They were removed and oriented for pathology. The wound was irrigated and hemostasis obtained. The wound was closed with two layers of Monocryl. Attention then turned to the right axilla. With direction with the Gamma probe, a small curvilinear incision was made and vertical dissection was carried down to singly active hot spot. Two nodes were removed with counts in the 700 and 800 and background count under 40 indicating appropriate resection of the sentinel nodes. No palpable nodes were present. These nodes were somewhat fleshy as seen on preoperative ultrasound and frozen section was requested, which showed benign findings. The wound was irrigated and hemostasis obtained. The wound was closed with two layers of Monocryl. The patient tolerated the procedure well without complications. ESTIMATED BLOOD LOSS: Less than 10 mL. Record Of Operation [address] [address] NAME: LASHONDA LESTER : [birth year] STATUS : [facility]#: [id number] AGE: 61 ADM/REG DATE : 08/01/16 MR#: [id number] REPORT SERV DATE: 08/02/16 DICTATED BY: ANDRE HAHN JR. DATE: 08/01/16 REPORT STATUS : Draft TRANSCRIBED BY: ANDREA DATE: 08/01/16 SPONGE COUNT: Correct. /ANDREA Andre Hahn Jr., M.D. / [id number] CC: Fernando Willingham Jr., M.D. Michael Stipanov, M.D. [address]
[~2016-08-01 07:19] MED LIST changes: +BENTYL10 PO; +DIL2TAB PO; +FLEX PO; +GLUCOPHAGE1000 MG PO; +MIRAPEX5 PO; +NEUR100 PO; +PCET PO; +PR12.5 PO; +SUCR PO; +ZANTAC300 MG PO
[2016-09-12] MEDS ORDERED: NORCO1 TAB PO (22:23)
[2016-09-12] MEDS ORDERED: P10 PO (22:24)
[2016-09-12] MEDS ORDERED: ULTRAM50 PO (22:25)
[2016-09-12] MEDS ORDERED: FLEX PO (22:25)
[2016-09-12] MEDS ORDERED: DEX4 PO (22:26)
[2016-09-12] MEDS ORDERED: NEUR100 PO (22:26)
[2016-09-12] MEDS ORDERED: CHEMOTHERAPY IV (22:27)
[2016-09-12] MEDS ORDERED: CLARIT10 PO (22:27)
[2016-09-12] MEDS ORDERED: ZANTAC300 MG PO (22:28)
[2016-09-12] MEDS ORDERED: PR25 PO (22:28)
[2016-09-12] MEDS ORDERED: BENTYL10 PO (22:28)
[2016-09-12] MEDS ORDERED: METHOC750B PO (22:28)
[2016-09-12] MEDS ORDERED: GLUCOPHAGE1000 MG PO (22:30)
[2016-09-12] MEDS ORDERED: AMARYL2 PO (22:30)
[2016-09-12] MEDS ORDERED: PROTONIX PO (22:30)
[2016-09-12] MEDS ORDERED: MAXZIDE PO (22:30)
[2016-09-14] MEDS ORDERED: VANCOMYCIN PO/LIQ (11:11)
[2016-09-14] MEDS ORDERED: HABIT21 TOP (11:13)
[2016-09-14] MEDS ORDERED: HABIT14 TOP (11:14)
[2016-09-14] MEDS ORDERED: VANCOCIN HCL125 MG PO (11:15)
== END 2016-08-01 15:46 | disposition home or self-care (01) ==
LOC: SDC 07:19
PROVIDERS: Surgery Surgical Oncology
PROC: 07B50ZX Excision of Right Axillary Lymphatic, Open Approach, Diagnostic (ICD-10-PCS; 2016-08-01)
PROC: BH40ZZZ Ultrasonography of Right Breast (ICD-10-PCS; 2016-08-01)
PROC: 0HBT0ZZ Excision of Right Breast, Open Approach (ICD-10-PCS; principal; 2016-08-01 11:00)
DX: C50.911 Malignant neoplasm of unspecified site of right female breast (principal); I10 Essential (primary) hypertension; E11.9 Type 2 diabetes mellitus without complications; F17.210 Nicotine dependence, cigarettes, uncomplicated; D64.9 Anemia, unspecified; Z95.5 Presence of coronary angioplasty implant and graft; Z88.5 Allergy status to narcotic agent; Z90.49 Acquired absence of other specified parts of digestive tract; Z98.890 Other specified postprocedural states
CPT/HCPCS: 71020; 78195; 80053; 82962; 85014; 85018; 88305; 88307; 88331; 88342; 93005; A9270-GY; A9541; J0690; J1170; J2250; J2405; J2550; J3010

== ENCOUNTER 2016-08-02 01:18 | Emergency (ER) | payer OTHER ==
[2016-08-02 01:42] LABS: BASOPHILS 0.2 %; BASOPHILS ABSOLUTE 0.02 10/3/uL (0.0-0.16); EOSINOPHILS 1.7 %; EOSINOPHILS ABSOLUTE 0.15 10/3/uL (0.0-0.53); HEMATOCRIT 40.6 % (36.0-48.0); HEMOGLOBIN 13.1 g/dL (12.0-16.0); IMMATURE GRANULOCYTES 0.5 %; IMMATURE GRANULOCYTES ABSOLUTE 0.04 10/3/uL (0.0-0.11); LYMPHOCYTES ABSOLUTE 1.89 10/3/uL (0.67-4.30); MEAN CORPUS HGB CONC 32.3 g/dL (32.0-36.0); MEAN CORPUSCULAR HEMOGLOB 27.8 pg (26.0-34.0); MEAN CORPUSCULAR VOLUME 86.2 fL (80-100); MEAN PLATELET VOLUME 9.7 fL (9.2-13.0); MONOCYTES 4.2 %; MONOCYTES ABSOLUTE 0.36 10/3/uL (0.21-1.20); NEUTROPHILS 71.4 %; NEUTROPHILS ABSOLUTE 6.13 10/3/uL (2.02-8.40); RBC DISTRIBUTION WIDTH 14.5 % (12.0-16.0); RED CELL COUNT 4.71 10/6/uL (4.0-5.6)
[2016-08-02 01:43] LABS: ER CBC TAT 0 Hrs 13 Mins; MANUAL DIFF NO %; PLATELET COUNT 270 10/3/uL (150-400); WHITE BLOOD CELLS 8.6 10/3/uL (4.5-10.5)
[2016-09-12] MEDS ORDERED: NORCO1 TAB PO (22:23)
[2016-09-12] MEDS ORDERED: P10 PO (22:24)
[2016-09-12] MEDS ORDERED: FLEX PO (22:25)
[2016-09-12] MEDS ORDERED: ULTRAM50 PO (22:25)
[2016-09-12] MEDS ORDERED: NEUR100 PO (22:26)
[2016-09-12] MEDS ORDERED: DEX4 PO (22:26)
[2016-09-12] MEDS ORDERED: CLARIT10 PO (22:27)
[2016-09-12] MEDS ORDERED: CHEMOTHERAPY IV (22:27)
[2016-09-12] MEDS ORDERED: METHOC750B PO (22:28)
[2016-09-12] MEDS ORDERED: PR25 PO (22:28)
[2016-09-12] MEDS ORDERED: ZANTAC300 MG PO (22:28)
[2016-09-12] MEDS ORDERED: BENTYL10 PO (22:28)
[2016-09-12] MEDS ORDERED: AMARYL2 PO (22:30)
[2016-09-12] MEDS ORDERED: GLUCOPHAGE1000 MG PO (22:30)
[2016-09-12] MEDS ORDERED: MAXZIDE PO (22:30)
[2016-09-12] MEDS ORDERED: PROTONIX PO (22:30)
[2016-09-14] MEDS ORDERED: VANCOMYCIN PO/LIQ (11:11)
[2016-09-14] MEDS ORDERED: HABIT21 TOP (11:13)
[2016-09-14] MEDS ORDERED: HABIT14 TOP (11:14)
[2016-09-14] MEDS ORDERED: VANCOCIN HCL125 MG PO (11:15)
== END 2016-08-02 02:31 | disposition home or self-care (01) ==
LOC: ER 01:18
PROVIDERS: Specialist
DX: G89.18 Other acute postprocedural pain (principal); G89.29 Other chronic pain; F17.200 Nicotine dependence, unspecified, uncomplicated; E11.9 Type 2 diabetes mellitus without complications; Z95.5 Presence of coronary angioplasty implant and graft; Z85.3 Personal history of malignant neoplasm of breast; Z85.038 Personal history of other malignant neoplasm of large intestine; Z88.5 Allergy status to narcotic agent; Z79.84 Long term (current) use of oral hypoglycemic drugs; Z79.899 Other long term (current) drug therapy
CPT/HCPCS: 85025; 96374; 99283; J1170; J2550